=== PATIENT | female | born 1960 | race Caucasian/White ===

== ENCOUNTER 2018-01-08 08:25 | Day surgery (SDC) | payer BC ==
[2016-02-03 15:05] VITALS: BMI 29.2
[2018-01-08 09:01] VITALS: O2SAT 100
--- NOTE | 2018-01-08 09:04 | CP.SDSHP ---
Same Day Surgery H & P - History Proposed Procedure: colonoscopy - Previous Medical/Surgical History Cardiac: Hypertension Misc: Anemia Previous Surgical History: Csection x4 - Allergies Allergies: Allergies No Known Allergies Allergy (Verified 01/08/18 08:48) - Physical Exam Vital Signs: Vital Signs 01/08/18 08:30 Temperature 97.9 F Pulse Rate 54 L Respiratory 19 Rate Blood Pressure 155/62 H O2 Sat by Pulse 100 Oximetry - Date & Time Date: 01/08/18 Time: 09:03 Short Stay Discharge - Short Stay Discharge Admitting Diagnosis/Reason for Visit: SCREENING Disposition: HOME/ ROUTINE Referrals: Ilda Encarnacion MD [Primary Care Provider] -
[2018-01-08] MEDS ORDERED: Lactated Ringer's 500 ML IV SCH (09:15)
[2018-01-08] MEDS ORDERED: Propofol 10 mg/ml Inj (20 ML) ONE (09:26)
[2018-01-08] MEDS ORDERED: Simethicone 80 mg Chewtab PO STA (10:37)
[2018-01-08] MEDS ORDERED: Belladonna-Phenobarbital PO STA ×2 (10:39→10:48)
[2018-01-08 10:47] VITALS: TEMP 97.3
[2018-01-08 11:50] VITALS: BP 125/53; PULSE 57; RESP 13
== END 2018-01-08 11:10 | disposition home or self-care (01) ==
LOC: C.ENDO 08:25
PROVIDERS: ATTEND Colon & Rectal Surgery
DX: Z12.11 Encounter for screening for malignant neoplasm of colon (principal); K64.4 Residual hemorrhoidal skin tags
CPT/HCPCS: 45378; J2704; J7120